=== PATIENT | male | born 1995 | race Hispanic/Latino ===

== ENCOUNTER 2019-04-07 15:48 | Emergency (ER) | payer SELFPAY ==
[~2019-04-07] VITALS: Ht 182.9 cm; Wt 97.5 kg
--- OUTSIDE RECORDS SUMMARY | 2019-04-07 15:55 | XMS REPORT | Clinical Summary ---
Author Author [facility] Organization [facility] Address Unknown Phone Unavailable Care Team Providers Care Jig [employer] Name Role Phone Asked, No Pcp PCP Unavailable Allergies No Known Allergies Medications End Date Status Medication Sig Dispensed Refills Start Date Active naproxen (NAPROSYN) 500 Take 1 tablet 20 tablet 0 MG tablet (500 mg 8 total) by mouth 2 (two) times a day as needed for mild pain or moderate pain for up to 20 doses. 08/09/2018 clindamycin (CLEOCIN HCL) Take 1 40 capsule 0 300 MG capsule capsule (300 8 mg total) by mouth 4 (four) times a day for 10 days. 08/19/2018 sulfamethoxazole-trimetho Take 1 tablet 20 tablet 0 prim (BACTRIM DS) 800-160 by mouth 2 8 mg per tablet (two) times a day for 10 days. smx-tmp DS (BACTRIM) 800-160 mg tabs (1tab q12 D10) Active Problems Not on file Encounters Care Team Description Date Type Specialty Juventino De La Garza MD Abscess (Primary Dx) 08/09/2018 Emergency Emergency Medicine Jan Ramirez PA-C Siddiqi, Amaan H, MD Abscess (Primary Dx) 07/30/2018 Emergency Emergency Medicine after 04/06/2018 Social History Date Tobacco Use Types Packs/Day Years Used Never Smoker Smokeless Tobacco: Never Used Sex Assigned at Date Recorded Not on file Industry Job Start Date Occupation Not on file Not on file Not on file Travel End Travel History Travel Start No recent travel history available. Last Filed Vital Signs Time Taken Vital Sign Reading 08/09/2018 3:06 PM CDT Blood Pressure 122/71 08/09/2018 3:06 PM CDT Pulse 60 08/09/2018 3:06 PM CDT Temperature 37.3 C (99.1 F) 08/09/2018 3:06 PM CDT Respiratory Rate 20 08/09/2018 3:06 PM CDT Oxygen Saturation 98% - Inhaled Oxygen - Concentration 08/09/2018 3:07 PM CDT Weight 86.2 kg (190 lb) 08/09/2018 3:07 PM CDT Height 182.9 cm (6') 08/09/2018 3:07 PM CDT Body Mass Index 25.77 Plan of Treatment Not on file Procedures Comments Procedure Name Priority Date/Time Associated Diagnosis WI DRAIN SKIN ABSCESS Routine 08/09/2018 SIMPLE 4:08 PM CDT WI DRAIN SKIN ABSCESS Routine 07/30/2018 SIMPLE 10:56 AM CDT ANAEROBIC CULTURE Routine 07/30/2018 10:54 AM CDT GRAM STAIN Routine 07/30/2018 10:53 AM CDT AEROBIC CULTURE Routine 07/30/2018 10:53 AM CDT after 04/06/2018 Results * INCISION AND DRAINAGE (08/09/2018 4:08 PM CDT) Narrative Performed At Francie Brambila PA-C 08/09/20184:17 PM I&D/Aspiration/Amputation Performed by: FRANCIE BRAMBILA Authorized by: FRANCIE BRAMBILA Consent: Consent obtained:Verbal Consent given by:Patient Alternatives discussed:No treatment Location: Type:Abscess Location: Buttocks. Pre-procedure details: Skin preparation:Betadine Anesthesia (see MAR for exact dosages): Anesthesia method:Local infiltration Local anesthetic:Lidocaine 1% w/o epi Procedure details: Complexity:Simple Needle aspiration: No Incision types:Single straight Size (cm):2 Scalpel blade:11 Wound management:Irrigated with saline Drainage:Purulent Wound treatment:Drain placed Packing materials:10/22 in gauze Amount /4":6cm Post-procedure details: Patient tolerance of procedure:Tolerated well, no immediate complications * INCISION AND DRAINAGE (07/30/2018 10:56 AM CDT) Narrative Performed At Jan Ramirez PA-C 07/30/2018 10:40 PM I&D/Aspiration/Amputation Performed by: JAN RAMIREZ Authorized by: JAN RAMIREZ Consent: Consent obtained:Verbal Consent given by:Patient Risks discussed:Bleeding, incomplete drainage, pain, infection and damage to other organs Alternatives discussed:No treatment Location: Type:Abscess Location: left buttock. Pre-procedure details: Skin preparation:Betadine Anesthesia (see MAR for exact dosages): Anesthesia method:Local infiltration Local anesthetic:Lidocaine 1% w/o epi Procedure details: Complexity:Simple Incision types:Single straight Size (cm):1 Scalpel blade:11 Wound management:Probed and deloculated Drainage:Bloody and purulent Drainage amount:Moderate Packing materials:1/4 in gauze Post-procedure details: Patient tolerance of procedure:Tolerated well, no immediate complications * Anaerobic culture (07/30/2018 10:54 AM CDT) Anaerobic No anaerobic organisms [facility] culture isolate isolated. OF PATHOLOGY Comment: AND GENOMIC Specimen Information MEDICINE Specimen Source: Abscess Specimen Site: Back Specimen Abscess - Back Performing Organization Address [facility] OF [address] [place] [address] PATHOLOGY AND GENOMIC MEDICINE * Aerobic culture (07/30/2018 10:53 AM CDT) Aerobic culture Staphylococcus, coagulase [facility] isolate negative OF PATHOLOGY Rare AND GENOMIC (A) MEDICINE Comment: Specimen Information Specimen Source: Wound Specimen Site: Abscess Aerobic culture Streptococcus group B [facility] isolate Rare OF PATHOLOGY The performance AND GENOMIC characteristics of this assay MEDICINE on this isolate were validated by the Microbiology Laboratory at [facility].This source has not been approved by the U.[place]. Food and Drug Administration.The results are not intended to be used as the sole means for clinical diagnosis or patient management.The Microbiology Laboratory is authorized under the clinical Laboratory Improvement Amendments of 1988 (CLIA-88) to perform high complexity testing. (A) Specimen Wound - Abscess Performing Organization Address City/[facility] Phone Number [facility]PART[facility] OF [address] [place] [address] PATHOLOGY AND GENOMIC MEDICINE * Gram stain (07/30/2018 10:53 AM CDT) Gram stain Moderate WBC's [facility] isolate No organisms seen OF PATHOLOGY Comment: AND GENOMIC Specimen Information MEDICINE Specimen Source: Wound Specimen Site: Abscess Specimen Wound - Abscess Performing Organization Address City/State/Zipcode Phone Number [facility] DEPARTMENT OF [address] [place] [address] PATHOLOGY AND GENOMIC MEDICINE after 04/06/2018 Advance Directives Patient has advance care planning documents on file. For more information, simon gonzalez contact: Travis Nash [address] [place] [address]
[2019-04-07] MEDS ORDERED: PREDNISONE20 MG PO (17:26)
[2019-04-07 17:35] VITALS: BP 114/64
== END 2019-04-07 17:34 | disposition home or self-care (01) ==
LOC: ER 15:48
DX: L24.7 Irritant contact dermatitis due to plants, except food (principal); L23.7 Allergic contact dermatitis due to plants, except food
CPT/HCPCS: 99282